=== PATIENT | female | born 1980 | race Caucasian/White ===

== ENCOUNTER 2021-01-10 08:17 | Emergency (ER) | payer OTHER ==
[~2021-01-10] VITALS: Ht 170.2 cm; Wt 136.1 kg
[~2021-01-10 08:17] MED LIST: ACETAMINOPHEN325 M1 PO; CARAFATE 1 GM TA1 G1 PO; HYDROCODONE-AP1 EAC6 PO; MOBIC15 MG PO; MUCINEX TA600 MG/TA1 PO; SINGULAIR 10 MG10 M1 PO; ZOFRAN ODT4 MG PO
[2021-01-10] MEDS ORDERED: PROTONIX 20 MG20 M1 PO (08:32)
[2021-01-10] MEDS ORDERED: NASONEX17 GM NASAL (08:32)
[2021-01-10] MEDS ORDERED: LEVOTHYROXINE112 MC1 PO (08:32)
[2021-01-10] MEDS ORDERED: QVAR REDIHALE10.6 G1 INH (08:32)
[2021-01-10 08:46] LABS: ABSOLUTE BASOPHILS 0.1 thou/uL (0.0-0.2); ABSOLUTE EOSINOPHILS 0.1 thou/uL (0.0-0.7); ABSOLUTE LYMPHOCYTES 1.5 thou/uL (0.8-5.3); ABSOLUTE MONOCYTES 0.3 thou/uL (0.0-1.2); ABSOLUTE NEUTROPHILS 5.3 thou/uL (1.6-8.1); BASOPHILS 0.8 %; EOSINOPHILS 1.3 %; HEMATOCRIT 38.9 % (37.0-47.0); HEMOGLOBIN 12.9 gm/dL (12.0-15.0); LYMPHOCYTES 20.4 %; MCHC 33.1 g/dL (28.0-37.0); MCV 78.4 fL (80.0-100.0); MONOCYTES 4.2 %; MPV 6.7 fl. (7.2-11.1); NUCLEATED RBCS 0 /100WBC; PLATELET COUNT* 305 thou/uL (150-400); POLYS 73.3 %; RBC 4.96 mil/uL (4.20-5.00); RDW-CV 16.5 % (10.5-14.5); WBC 7.3 thou/uL (4.0-11.0)
[2021-01-10 08:56] LABS: CALCIUM 8.3 mg/dL (8.5-10.1); CREATININE 1.2 mg/dL (0.6-1.3); POTASSIUM 4.1 mmol/L (3.5-5.1)
[2021-01-10 09:01] LABS: ALBUMIN 3.4 g/dL (3.4-5.0); TOTAL BILIRUBIN 0.3 mg/dL (<0.1-1.0); TOTAL PROTEIN 7.8 g/dL (6.4-8.2)
[2021-01-10 09:44] VITALS: BP 119/72
== END 2021-01-10 09:45 | disposition home or self-care (01) ==
LOC: M.ERS 08:17
PROVIDERS: Family Medicine
DX: R51.9 Headache, unspecified (principal); Z20.822 Contact with and (suspected) exposure to COVID-19; J45.909 Unspecified asthma, uncomplicated; E78.5 Hyperlipidemia, unspecified; Z91.040 Latex allergy status; Z88.2 Allergy status to sulfonamides; Z88.1 Allergy status to other antibiotic agents; Z88.8 Allergy status to other drugs, medicaments and biological substances; Z90.49 Acquired absence of other specified parts of digestive tract; Z90.710 Acquired absence of both cervix and uterus